=== PATIENT | female | born 1985 | race Caucasian/White ===

== ENCOUNTER 2019-09-10 10:16 | Emergency (ER) | payer OTHER ==
[2019-09-10 10:44] VITALS: TEMP 98.1; BMI 27.0
--- NOTE | 2019-09-10 11:33 | PDOC ---
History of Present Illness - General Chief Complaint: Chest Pain Stated Complaint: CHEST PAIN Time Seen by Provider: 09/10/19 11:21 History Source: Patient Exam Limitations: No Limitations - History of Present Illness Initial Comments: 09/10/19 11:34 34-year-old female presents to ED with complaints of midsternal chest pressure while sitting on the couch x15 minutes. Patient states called EMS and by the time EMS arrived patient was asymptomatic. patient states recently lost her job also has been having housing and social issues at home. Patient denies any Illicit drug use except for marijuana and smokes cigarettes daily. Patient denies medical history including dyslipidemia or diabetes. No meds taken since onset. Presenting Symptoms: Chest Pain Timing/Duration: reports: resolved prior to arrival Severity/Quality: reports: mild, pressure Location: reports: substernal Chest Pain Radiation: reports: no radiation Activities at Onset: reports: none Prior Chest Pain/Cardiac Workup: reports: No prior chest pain Associated Symptoms: Yes: Chest Pain/pressure Past History - Travel Traveled outside of the country in the last 30 days: No Close contact w/someone who was outside of country & ill: No - Past Medical History Allergies/Adverse Reactions: Allergies Allergy/AdvReac Type Severity Reaction Status Date / Time No Known Allergies Allergy Verified 09/10/19 10:39 Home Medications: Ambulatory Orders NK [No Known Home Medication] 09/10/19 COPD: No - Psycho Social/Smoking Cessation Hx Smoking History: Current every day smoker Information on smoking cessation initiated: No Hx Alcohol Use: No Drug/Substance Use Hx: No Patient Lives Alone: No Lives with/in: spouse/SO Review of Systems - Review of Systems Able to Perform ROS?: Yes Constitutional: No: Symptoms Reported HEENTM: No: Symptoms Reported Respiratory: No: Symptoms reported Cardiac (ROS): Yes: Chest Pain ABD/GI: No: Symptoms Reported : No: Symptoms Reported Musculoskeletal: No: Symptoms Reported Integumentary: No: Symptoms Reported Neurological: No: Symptoms reported *Physical Exam - Vital Signs Last Vital Signs Temp Pulse Resp BP Pulse Ox 98.1 F 70 18 106/61 99 09/10/19 10:25 09/10/19 10:25 09/10/19 10:25 09/10/19 10:25 09/10/19 10:25 - Physical Exam General Appearance: Yes: Nourished, Appropriately Dressed. No: Apparent Distress HEENT: positive: EOMI, CHAMP (2mm himanshu). negative: Pale Conjunctivae Neck: positive: Supple Respiratory/Chest: positive: Lungs Clear, Normal Breath Sounds. negative: Chest Tender, Respiratory Distress, Accessory Muscle Use Cardiovascular: positive: Regular Rhythm, Regular Rate. negative: Murmur Gastrointestinal/Abdominal: positive: Soft. negative: Tenderness Extremity: positive: Normal Inspection Integumentary: positive: Normal Color, Warm, Moist Neurologic: positive: Motor Strength 5/5 (ambulatory) ED Treatment Course - LABORATORY CBC & Chemistry Diagram: 09/10/19 11:44 09/10/19 11:44 - ADDITIONAL ORDERS Additional order review: Laboratory Results 09/10/19 11:44 Sodium 137 Potassium 4.3 Chloride 108 H Carbon Dioxide 24 Anion Gap 5 L BUN 9.5 Creatinine 0.8 Est GFR (CKD-EPI)AfAm 109.93 Est GFR (CKD-EPI)NonAf 94.85 Random Glucose 80 Calcium 9.5 Total Bilirubin 0.6 AST 9 L ALT 16 Alkaline Phosphatase 54 Creatine Kinase 97 Troponin I < 0.02 Total Protein 7.9 Albumin 4.5 09/10/19 11:44 RBC 4.17 MCV 89.2 MCHC 33.5 RDW 13.7 MPV 8.1 Neutrophils % 67.0 Lymphocytes % 26.1 Monocytes % 5.5 Eosinophils % 0.6 Basophils % 0.8 Medical Decision Making - Medical Decision Making 09/10/19 11:04 CC: episodic midsternal chest pressure. Exam: Normal physical exam. Vital signs stable. EKG NSR 76 plan: CBC, cardiac profile 09/10/19 13:16 Pt remains asymptomatic. Repeat vitals pressure 102/76 heart rate 77 and 98% on room air. Discharge - Discharge Information Problems reviewed: Yes Clinical Impression/Diagnosis: Chest pain Condition: Improved Disposition: HOME - Admission No - Follow up/Referral Referrals: Veronica Hairston MD [Primary Care Provider] - - Patient Discharge Instructions Patient Printed Discharge Instructions: DI for Chest Pain Additional Instructions: Please try to avoid stress Include exercise and your activity schedule would be helpful. Consider follow-up with your psychiatrist to discuss recent stressors. - Post Discharge Activity
[2019-09-10 12:11] LABS: BASO % 0.8 % (0-2.0); EOS % 0.6 % (0-4.5); HEMATOCRIT 37.2 % (32.4-45.2); HEMOGLOBIN 12.4 GM/dL (10.7-15.3); LYMPH % 26.1 % (8-40); MCH 29.9 pg (25.7-33.7); MCHC 33.5 g/dl (32.0-36.0); MEAN CELL VOLUME 89.2 fl (80-96); MEAN PLT VOLUME 8.1 fl (7.5-11.1); MONO % 5.5 % (3.8-10.2); PLATELET COUNT 295 K/MM3 (134-434); RBC 4.17 M/mm3 (3.60-5.2); RDW 13.7 % (11.6-15.6); WHITE BLOOD COUNT 9.6 K/mm3 (4.0-10.0)
[2019-09-10 12:39] LABS: ALBUMIN 4.5 g/dl (3.4-5.0); ALK PHOS 54 U/L (45-117); ANION GAP 5 MMOL/L (8-16); BILIRUBIN,TOTAL 0.6 mg/dL (0.2-1); BLOOD UREA NITROGEN 9.5 mg/dL (7-18); CALCIUM 9.5 mg/dL (8.5-10.1); CHLORIDE 108 mmol/L (98-107); CO2 24 mmol/L (21-32); CREATININE 0.8 mg/dL (0.55-1.3); GLUCOSE,RANDOM 80 mg/dL (74-106); POTASSIUM 4.3 mmol/L (3.5-5.1); SGOT/AST 9 U/L (15-37); SGPT/ALT 16 U/L (13-61); SODIUM 137 mmol/L (136-145); TOT PROT 7.9 g/dl (6.4-8.2)
[2019-09-10 13:38] VITALS: BP 102/76; PULSE 77
--- NOTE | 2019-09-10 14:39 | EKG ---
Test Reason : Blood Pressure : / mmHG Vent. Rate : 067 BPM Atrial Rate : 067 BPM P-R Int : 166 ms QRS Dur : 082 ms QT Int : 382 ms P-R-T Axes : 035 071 049 degrees QTc Int : 403 ms SINUS RHYTHM WITH MARKED SINUS ARRHYTHMIA OTHERWISE NORMAL ECG NO PREVIOUS ECGS AVAILABLE Confirmed by MARGIE SONI, JEAN ([id number]) on 09/10/2019 2:39:30 PM Referred By: Confirmed By:JEAN HANSON MD
== END 2019-09-10 13:38 | disposition home or self-care (01) ==
LOC: JER 10:16
DX: R07.9 Chest pain, unspecified (principal); F17.210 Nicotine dependence, cigarettes, uncomplicated; Z59.8 Other problems related to housing and economic circumstances
CPT/HCPCS: 36415; 80053; 82550; 84484; 85025; 93005; 93010; 99283-25